=== PATIENT | male | born 1995 | race Hispanic/Latino ===

== ENCOUNTER 2021-10-29 09:05 | Emergency (ER) | payer OTHER ==
[~2021-10-29] VITALS: Ht 175.3 cm; Wt 91.5 kg
[2021-10-29 11:22] VITALS: BP 110/66
== END 2021-10-29 11:27 | disposition home or self-care (01) ==
LOC: M ED 09:05
DX: J06.9 Acute upper respiratory infection, unspecified (principal)
CPT/HCPCS: 99283; U0003

== ENCOUNTER 2021-12-12 11:58 | Emergency (ER) | payer OTHER ==
[~2021-12-12] VITALS: Ht 175.3 cm; Wt 94.2 kg
[2021-12-12 11:58] VITALS: BP 115/68
[2021-12-12] MEDS ORDERED: OFLOSO OTIC (14:27)
== END 2021-12-12 14:34 | disposition home or self-care (01) ==
LOC: M ED 11:58
DX: H60.01 Abscess of right external ear (principal)